=== PATIENT | male | born 1985 | race African-American/Black ===

== ENCOUNTER 2018-06-09 02:09 | Emergency (ER) | payer OTHER ==
[2018-06-09] MEDS ORDERED: TETRACAINE 0.5% OPHTH SOLN 2 ML BOTTLE ONE (02:25)
[2018-06-09] MEDS ORDERED: TETRACAINE 0.5% OPHTH SOLN 2 ML BOTTLE OU ONE (02:26)
[2018-06-09] MEDS ORDERED: TETRACAINE 0.5% HCL 0.6ML DROPPER.BOTTLE OU ONE (02:26)
[2018-06-09 02:33] VITALS: BP 112/70; PULSE 81; TEMP 97.6; BMI 23.6
[2018-06-09] MEDS ORDERED: FLUORESCEIN NA 1 EA STRIP ONE (02:43)
--- NOTE | 2018-06-09 03:25 | PDOC ---
*Physical Exam - Vital Signs Last Vital Signs Temp Pulse Resp BP Pulse Ox 97.6 F 81 18 112/70 98 06/09/18 02:15 06/09/18 02:15 06/09/18 02:15 06/09/18 02:15 06/09/18 02:15 ED Treatment Course - LABORATORY CBC & Chemistry Diagram: 06/09/18 04:12 06/09/18 04:12 Medical Decision Making - Medical Decision Making 06/09/18 03:03 32y M no pmhx presents with b/l eye pain, injection, and blurry vision. pt states he was fine, this evening he was working on his computer when both eyes started hurting. 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 denies any headache, n/v, fever/ chills. +photophbia does not wear contacts. on exam pt has b/l conjunctival injection ddx - ?iritis vs fb vs glaucoma no uptake on flourisciene b/l unable to perform tomometry as tonopen not available *DC/Admit/Observation/Transfer - Referrals Referrals: Nani Moncada [Primary Care Provider] - - Patient Instructions - Post Discharge Activity
--- NOTE | 2018-06-09 03:59 | PDOC ---
History of Present Illness - General Chief Complaint: Eye Problem Stated Complaint: EYE PROBLEM Time Seen by Provider: 06/09/18 02:12 History Source: Patient Exam Limitations: No Limitations - History of Present Illness Initial Comments: 32 y/o M with no sig pmh presents with sudden onset of B/L eye burning, tearing , photophobia and FB sensation that started at 11:30 PM last night. 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 Does not wear eye protection. However, states he finished his work around 5 PM and symptoms started at 11:30 PM while he was using computer. Denies wearing contacts or lenses. Denies fever, headache, n/v, numbness/tingling, weakness of extremities. 06/09/18 03:43 Past History - Past Medical History Allergies/Adverse Reactions: Allergies Allergy/AdvReac Type Severity Reaction Status Date / Time No Known Allergies Allergy Verified 06/09/18 02:32 Home Medications: Ambulatory Orders Dextran 70/Hypromellose [Artificial Tears Eye Drops] 1 drop OP DAILY #15 ml COPD: No - Immunization History Immunization Up to Date: Yes - Suicide/Smoking/Psychosocial Hx Smoking History: Never smoked Have you smoked in the past 12 months: No Information on smoking cessation initiated: No Hx Alcohol Use: No Drug/Substance Use Hx: No Substance Use Type: None Review of Systems - Review of Systems Comments:: see hpi 06/09/18 04:02 *Physical Exam - Vital Signs Last Vital Signs Temp Pulse Resp BP Pulse Ox 97.6 F 81 18 112/70 98 06/09/18 02:15 06/09/18 02:15 06/09/18 02:15 06/09/18 02:15 06/09/18 02:15 - Physical Exam General Appearance: Yes: Apparent Distress (Patient tearing from both eyes, unable to open eyes due to photophobia) HEENT: positive: EOMI, REJI, Other (+B/L eyes are injected, no obvious FB noted , eyelids inverted and no FB noted on Q-tip, no dye uptake on fluorescein exam) Respiratory/Chest: positive: Lungs Clear, Normal Breath Sounds. negative: Respiratory Distress Cardiovascular: positive: Regular Rhythm, Regular Rate, S1, S2. negative: Murmur Neurologic: positive: Fully Oriented, Alert, Normal Mood/Affect Moderate Sedation - Procedure Monitoring Vital Signs: Procedure Monitoring Vital Signs Temperature 97.6 F 06/09/18 02:15 Pulse Rate 81 06/09/18 02:15 Respiratory Rate 18 06/09/18 02:15 Blood Pressure 112/70 06/09/18 02:15 O2 Sat by Pulse Oximetry (%) 98 06/09/18 02:15 ED Treatment Course - LABORATORY CBC & Chemistry Diagram: 06/09/18 04:12 06/09/18 04:12 Medical Decision Making - Medical Decision Making 32 y/o M with no sig pmh presents with sudden onset of B/L eye pain, tearing, photophobia and FB sensation. On PE, no evidence of corneal abrasion noted. Unable to check IOP to r/o possible glaucoma given no tonopen available ( however less suspicious for B/L glaucoma). Unable to check for floaters to r/o possible iritis given unavailability of slit lamp. Tetracaine improved eye pain slightly for patient Attempted eye irrigation as well with not much difference. Discussed case with ophthalmology given unclear cause of patient's symptoms. Spoke to Dr. Wen Gomez, who advised discharging patient on artificial tears. However, on reassessment, though patient noted some improvement in his eyes, he is still having significant photophobia and unable to completely open eyes for visual acuity exam. Will get basic labs, ESR, CRP (consider possibly pain related to some inflammatory condition?) D/W Dr. Hill 06/09/18 04:04 Labs reviewed and unremarkable Patient reassessed and now feeling remarkably improved Patient no longer experiencing photophobia and redness in both eyes also starting to clear Visual acuity was 20/20 left eye, 20/20 right eye, 20/20 both eyes Given improvement in sxs, will discharge patient on Artificial tears with ophthalmology referral 06/09/18 05:32 *DC/Admit/Observation/Transfer Diagnosis at time of Disposition: Sensation of foreign body in eye - Discharge Dispostion Disposition: HOME Condition at time of disposition: Improved Decision to Admit order: No - Prescriptions Prescriptions: Dextran 70/Hypromellose [Artificial Tears Eye Drops] 1 drop OP DAILY #15 ml - Referrals Referrals: Nani Moncada [Primary Care Provider] - 3 days Wen Gomez MD [Staff Physician] - Call tomorrow - Patient Instructions Printed Discharge Instructions: DI for Eye Pain Additional Instructions: Thank you for choosing [facility]. It was a pleasure taking care of you. Please call the eye doctor today or tomorrow for follow-up appointment Use the artificial tears - 1-2 drops into each eye as needed Return to the Emergency Department if your symptoms worsen or persist, you have fever, worsening vision, unable to see, severe headache, vomiting, double vision , weakness of extremities or other concerning symptoms. - Post Discharge Activity
[2018-06-09 04:29] LABS: EOS % 7.6 % (0-4.5); HEMOGLOBIN 14.2 GM/dL (11.7-16.9); LYMPH % 41.6 % (8-40); MCH 30.3 pg (25.7-33.7); MCHC 34.6 g/dl (32.0-35.9); MEAN CELL VOLUME 87.4 fl (80-96); MEAN PLT VOLUME 9.1 fl (7.5-11.1); NEUT % 40.8 % (42.8-82.8); PLATELET COUNT 191 K/MM3 (134-434); RBC 4.69 M/mm3 (4.00-5.60); RDW 13.2 % (11.9-15.9); WHITE BLOOD COUNT 4.4 K/mm3 (4.0-10.0)
[2018-06-09 04:59] LABS: ALBUMIN 3.6 g/dl (3.4-5.0); ALK PHOS 86 U/L (45-117); ANION GAP 7 MMOL/L (8-16); BILIRUBIN,TOTAL 0.4 mg/dL (0.2-1); BLOOD UREA NITROGEN 18 mg/dL (7-18); CALCIUM 8.7 mg/dL (8.5-10.1); CHLORIDE 106 mmol/L (98-107); CO2 26 mmol/L (21-32); CREATININE 1.2 mg/dL (0.55-1.3); GLUCOSE,RANDOM 85 mg/dL (74-106); POTASSIUM 3.9 mmol/L (3.5-5.1); SGOT/AST 23 U/L (15-37); SGPT/ALT 27 U/L (13-61); SODIUM 138 mmol/L (136-145); TOT PROT 6.8 g/dl (6.4-8.2)
== END 2018-06-09 05:52 | disposition home or self-care (01) ==
LOC: JER 02:09
DX: H57.89 Other specified disorders of eye and adnexa (principal)
CPT/HCPCS: 36415; 80053; 85025; 85651; 86140; 99281-25